=== PATIENT | male | born 1955 | race Caucasian/White ===

== ENCOUNTER 2018-05-18 08:18 | Day surgery (SDC) | payer OTHER ==
[~2018-05-18] VITALS: Ht 185.4 cm; Wt 87.1 kg
[~2018-05-18 08:18] MED LIST: CEFAZOLIN SOD 1 GM in D5W 50 ML IV ONE
[2018-05-18] MEDS ORDERED: GLYCOPYRROLATE 0.2 MG/ML VIAL IJ ONE (09:00)
[2018-05-18] MEDS ORDERED: NEOSTIGMINE METHYLSULFATE 1 MG/ML, 10 ML VIAL IVP ONE (09:00)
[2018-05-18] MEDS ORDERED: ROCURONIUM BROMIDE 10 MG/ML (ZEMURON) IV ONE (09:00)
[2018-05-18] MEDS ORDERED: LR 1,000 ML IV.SOLN IV ONE (09:00)
[2018-05-18] MEDS ORDERED: ONDANSETRON HCL 4 MG/2 ML VIAL IVP ONE (09:00)
[2018-05-18] MEDS ORDERED: MIDAZOLAM HCL 5 MG/5 ML VIAL IVP ONE (09:00)
[2018-05-18] MEDS ORDERED: SEVOFLURANE 15 MIN GAS INH ONE (09:00)
[2018-05-18] MEDS ORDERED: fentaNYL CITRATE 250 MCG/5 ML AMP IV ONE (09:00)
[2018-05-18] MEDS ORDERED: POLYMYXIN 500,000/BACIT.10,000 UNITS in NS IRR 1 L IR ONE (09:08)
[2018-05-18] MEDS ORDERED: LR 1,000 ML IV SCH (09:32)
[2018-05-18] MEDS ORDERED: MORPHINE 4 MG/ML INJ. SYRINGE IVP PRN ×3 (09:45)
[2018-05-18] MEDS ORDERED: METOCLOPRAMIDE HCL 10 MG/2 ML VIAL IVP PRN (09:45)
[2018-05-18] MEDS ORDERED: D5/0.45 NS 1,000 ML IV SCH (10:05)
[2018-05-18] MEDS ORDERED: HYDROcodone/ACETAMIN 5-325 MG TAB (NORCO/ VICODIN) PO PRN ×2 (10:15)
[2018-05-18] MEDS ORDERED: HYDROmorphone 2 MG/ML VIAL IVP PRN (10:15)
[2018-05-18 12:10] VITALS: BP_SYST 136
== END 2018-05-18 12:10 | disposition home or self-care (01) ==
LOC: SDS 08:18 → SMU 08:18 → SDS 12:10
PROVIDERS: ATTEND Colon & Rectal Surgery
DX: K40.30 Unilateral inguinal hernia, with obstruction, without gangrene, not specified as recurrent (principal); I10 Essential (primary) hypertension; E78.5 Hyperlipidemia, unspecified; Z98.890 Other specified postprocedural states; Z79.899 Other long term (current) drug therapy; N52.9 Male erectile dysfunction, unspecified; Z80.8 Family history of malignant neoplasm of other organs or systems; Z82.49 Family history of ischemic heart disease and other diseases of the circulatory system
CPT/HCPCS: 49507; C1781; J0690; J2250; J2405; J2710; J3010; J3490; J7060; J7120